=== PATIENT | female | born 1955 | race Caucasian/White ===

== ENCOUNTER 2023-03-17 13:37 | Day surgery (SDC) | payer MEDICARE, MEDICAID ==
[2023-03-16 08:37] LABS: BASOPHILS # (AUTO) 0.1 X10'3 (0-0.2); EOSINOPHILS # (AUTO) 0.3 X10'3 (0-0.9); HEMATOCRIT 41.6 % (35.0-45.0); HEMOGLOBIN 13.7 g/dl (12.0-16.0); LYMPHOCYTES # (AUTO) 2.6 X10'3 (1.1-4.8); MEAN CORPUSCULAR HGB CONC 32.9 g/dL (33.0-36.5); MEAN PLATELET VOLUME 9.8 FL (7.4-10.4); MONOCYTES # (AUTO) 0.5 X10'3 (0-0.9)
[2023-03-16 08:39] LABS: BASOPHILS % (AUTO) 1.4 % (0-1); EOSINOPHILS % (AUTO) 4.4 % (0-6); LYMPHOCYTES % (AUTO) 35.7 % (21-51); MEAN CORPUSCULAR HEMOGLOBIN 28.3 PG (27.0-31.0); MEAN CORPUSCULAR VOLUME 85.9 FL (78-98); MONOCYTES % (AUTO) 7.2 % (2-12); NEUTROPHILS # (AUTO) 3.8 X10'3 (1.8-7.7); NEUTROPHILS % (AUTO) 51.3 % (42-75); PLATELET COUNT 169 X10'3 (140-440); RED BLOOD COUNT 4.84 X10'6 (4.20-5.60); RED CELL DISTRIBUTION WIDTH 14.2 % (11.5-14.5); WHITE BLOOD COUNT 7.4 X10'3 (4.5-11.0)
[2023-03-16 08:44] LABS: APTT 28 SECONDS (22-32)
[2023-03-16 08:46] LABS: ALBUMIN 4.1 G/DL (3.4-5.0); ANION GAP 7 (8-16); BLOOD UREA NITROGEN 20 MG/DL (7-18); BUN/CREATININE RATIO 22.2 (10.0-20.0); CALCIUM 9.8 MG/DL (8.5-10.1); CHLORIDE 105 MMOL/L (99-107); CHOL/HDL RATIO 3.5 (0.00-4.99); CHOLESTEROL 171 MG/DL (0-200); GLUCOSE 97 MG/DL (70-104); HDL CHOLESTEROL 49 MG/DL (35-60); LDL CHOLESTEROL 92 MG/DL (50-100); POTASSIUM 4.3 MMOL/L (3.5-5.1); SODIUM 140 MMOL/L (135-145); TOTAL CARBON DIOXIDE 27.8 MMOL/L (24-32); TRIGLYCERIDES 78 MG/DL (20-135); eGFR 63 ML/MIN
[2023-03-17] VITALS (9 sets, daily range): BP systolic 133–174; BP diastolic 58–79
[~2023-03-17] VITALS: Ht 162.6 cm; Wt 68.2 kg
[~2023-03-17 13:37] MED LIST: AMLO5TAB PO; ASPI-974 PO; CLOP75TA15 PO; HYDR-4069 PO; HYDR25TA4 PO; SERT-153 PO; SIMV-42 PO
[2023-03-17] MEDS ORDERED: diphenhydrAMINE 25mg capsule PO PRN (13:55)
[2023-03-17] MEDS ORDERED: normal saline 1,000 ML IV SCH (13:55)
[2023-03-17] MEDS ORDERED: LORazepam 0.5 MG tablet PO PRN (13:55)
[2023-03-17] MEDS ORDERED: METO-395 PO (14:36)
[2023-03-17] MEDS ORDERED: HYDR50TA65 PO (14:36)
[2023-03-17] MEDS ORDERED: ISOS60TA71 PO (14:36)
[2023-03-17] MEDS ORDERED: LOSA50TA64 PO (14:36)
[2023-03-17] MEDS ORDERED: NITR0.4T48 (14:36)
[2023-03-17] MEDS ORDERED: ASPI-612 PO (14:38)
[2023-03-17] MEDS ORDERED: UBID100C45 PO (14:38)
[2023-03-17] MEDS ORDERED: POTA99CA (14:38)
[2023-03-17] MEDS ORDERED: nitroGLYCERIN-Tridil 50MG/D5W 250 ML IV ONE (14:42)
[2023-03-17] MEDS ORDERED: verapamil 2.5 mg/ml inj IV ONE (14:42)
[2023-03-17] MEDS ORDERED: LIDOcaine 1% (10mg/ml) 2ml vial ONE (14:42)
[2023-03-17] MEDS ORDERED: fentaNYL/PF 50MCG/1 ML 2ML syringe ONE (14:43)
[2023-03-17] MEDS ORDERED: iohexol 350MG/ML 100ml bottle IV ONE (14:43)
[2023-03-17] MEDS ORDERED: heparin 1,000unit/ml 10ml vial 10 ML ONE (14:43)
[2023-03-17] MEDS ORDERED: midazolam 1 mg/ML 2ml injection ONE (14:43)
[2023-03-17] MEDS ORDERED: nitroGLYCERIN 0.4mg SUBLingual tab SL PRN (16:00)
[2023-03-17] MEDS ORDERED: ondansetron/PF 4mg/2ml inj IV PRN (16:00)
[2023-03-17] MEDS ORDERED: proCHLORperazine 10 MG/2 ml inj IV PRN (16:00)
[2023-03-17] MEDS ORDERED: HYDROcodone/acetaminophen 10/325mg tab PO PRN (16:00)
[2023-03-17] MEDS ORDERED: HYDROcodone/acetaminophen 5mg/325mg tablet PO PRN (16:00)
[2023-03-17] MEDS ORDERED: OXAZEpam 15mg capsule PO PRN (16:00)
[2023-03-17] MEDS ORDERED: FLUT1AER INH (19:15)
== END 2023-03-17 19:55 | disposition home or self-care (01) ==
LOC: SSTAY O 13:37
PROVIDERS: ATTEND Student in an Organized Health Care Education/Training Program
DX: I25.110 Atherosclerotic heart disease of native coronary artery with unstable angina pectoris (principal); I25.82 Chronic total occlusion of coronary artery; I08.0 Rheumatic disorders of both mitral and aortic valves; I10 Essential (primary) hypertension; I25.2 Old myocardial infarction; F17.210 Nicotine dependence, cigarettes, uncomplicated; G47.33 Obstructive sleep apnea (adult) (pediatric); F41.9 Anxiety disorder, unspecified; F10.91 Alcohol use, unspecified, in remission; Z87.11 Personal history of peptic ulcer disease; Z98.41 Cataract extraction status, right eye; Z98.42 Cataract extraction status, left eye; Z90.710 Acquired absence of both cervix and uterus; Z88.0 Allergy status to penicillin; Z79.82 Long term (current) use of aspirin; Z79.899 Other long term (current) drug therapy; Z79.01 Long term (current) use of anticoagulants
CPT/HCPCS: 36415; 80048; 80061; 85025; 85610; 85730; 93005; 93306; 93454; 99152; C1894; J1644; J2250; J3010; J3490; J7030; Q9967; A6258; A6402

== ENCOUNTER 2023-03-24 13:39 | Day surgery (SDC) | payer MEDICARE, MEDICAID ==
[~2023-03-24] VITALS: Ht 162.6 cm; Wt 68.2 kg
[2023-03-24] VITALS (10 sets, daily range): BP systolic 106–196; BP diastolic 51–95
[~2023-03-24 13:39] MED LIST changes: +ASPI-612 PO; -ASPI-974 PO; +ATOR40TA PO; -CLOP75TA15 PO; -HYDR-4069 PO; -HYDR25TA4 PO; +HYDR50TA65 PO; +ISOS60TA71 PO; +LOSA50TA64 PO; +METO-395 PO; +NITR0.4T48; +NITR0.4T51 SL; +POTA99CA PO; -SERT-153 PO; -SIMV-42 PO; +UBID100C45 PO
[2023-03-24] MEDS ORDERED: LORazepam 0.5 MG tablet PO PRN (14:35)
[2023-03-24] MEDS ORDERED: diphenhydrAMINE 25mg capsule PO PRN (14:35)
[2023-03-24] MEDS ORDERED: normal saline 1,000 ML IV SCH (14:35)
[2023-04-01] MEDS ORDERED: HYDR-3972 PO (10:09)
[2023-04-02] MEDS ORDERED: GABA100C PO (20:16)
== END 2023-03-24 19:40 | disposition home or self-care (01) ==
LOC: SSTAY O 13:39
PROVIDERS: ATTEND Student in an Organized Health Care Education/Training Program
DX: I65.23 Occlusion and stenosis of bilateral carotid arteries (principal); I25.10 Atherosclerotic heart disease of native coronary artery without angina pectoris; I25.2 Old myocardial infarction; I10 Essential (primary) hypertension; E78.5 Hyperlipidemia, unspecified; F41.9 Anxiety disorder, unspecified; F17.290 Nicotine dependence, other tobacco product, uncomplicated; Z79.899 Other long term (current) drug therapy; Z88.0 Allergy status to penicillin; Z79.82 Long term (current) use of aspirin
CPT/HCPCS: 36222; 36225; 71250; 74176; 93005; 99152; 99153; A6258; J7030; Q0163

== ENCOUNTER 2024-01-06 09:28 | Outpatient (CLI) | payer MEDICARE, MEDICAID ==
[2024-01-05 10:57] LABS: ALBUMIN 3.8 G/DL (3.4-5.0); ANION GAP 9 (8-16); BLOOD UREA NITROGEN 20 MG/DL (7-18); BUN/CREATININE RATIO 18.3 (10.0-20.0); CALCIUM 9.2 MG/DL (8.5-10.1); CHLORIDE 102 MMOL/L (99-107); CREATININE 1.09 MG/DL (0.40-0.90); GLUCOSE 117 MG/DL (70-104); POTASSIUM 4.5 MMOL/L (3.5-5.1); SODIUM 139 MMOL/L (135-145); eGFR 50 ML/MIN
[~2024-01-06 09:28] MED LIST changes: -AMLO5TAB PO; +FURO-150 PO; +GABA100C PO; +GABA300C PO; +HYDR-3972 PO; -ISOS60TA71 PO; -NITR0.4T48; -NITR0.4T51 SL; +POTA-206 PO; -POTA99CA PO
[2024-01-06] MEDS ORDERED: iohexol 350 MG/ML 50ML vial IV ONE (09:41)
[2024-01-06] MEDS ORDERED: iohexol 350MG/ML 100ml bottle IV ONE (09:41)
== END 2024-01-06 23:59 | disposition home or self-care (01) ==
LOC: RAD 09:28
PROVIDERS: ATTEND Internal Medicine Interventional Cardiology
DX: I70.213 Atherosclerosis of native arteries of extremities with intermittent claudication, bilateral legs (principal); N28.1 Cyst of kidney, acquired; I65.29 Occlusion and stenosis of unspecified carotid artery; K57.30 Diverticulosis of large intestine without perforation or abscess without bleeding; I70.0 Atherosclerosis of aorta; I10 Essential (primary) hypertension; E78.5 Hyperlipidemia, unspecified
CPT/HCPCS: 36415; 75635; 80048; J3490; Q9967

== ENCOUNTER 2025-07-31 14:16 | Day surgery (SDC) | payer MEDICARE, OTHER ==
[2025-07-28 09:08] LABS: MEAN PLATELET VOLUME 8.7 FL (7.4-10.4); RED CELL DISTRIBUTION WIDTH 15.9 % (11.5-14.5)
[2025-07-28 09:25] LABS: CREATININE 1.21 MG/DL (0.40-0.90); TOTAL CARBON DIOXIDE 26.3 MMOL/L (24-32); eGFR 44 ML/MIN
[~2025-07-31] VITALS: Ht 162.6 cm; Wt 64.8 kg
[2025-07-31] VITALS (12 sets, daily range): BP systolic 112–184; BP diastolic 51–87; PULSE 61–88; RESP 16; TEMP 97.6; O2SAT 99–100
--- NOTE | 2025-07-31 14:43 | ELECTROCARDIOGRAPH REPORT ---
[facility] Test Date: 2025-07-31 Test Time: 14:41:03 Pat Name: MATTEO PAIZ Department: [facility] Patient ID: [id number] Room: Gender: F Touch Up Painter: CEDRIC : 1955 Requested By: JACK KELLOGG Order Number: [id number] Reading MD: Dr. JOSH Staples Measurements Intervals [place] Rate: 64 P: 49 NC: 175 QRS: 26 QRSD: 97 T: -2 QT: 402 QTc: 415 Interpretive Statements Sinus rhythm Probable anteroseptal infarct, recent Electronically Signed On 07-31-2025 16:06:[address] JOSH Staples Please click the below link to view image of tracing.
[2025-07-31] MEDS ORDERED: NITR0.4T48 (15:21)
[2025-07-31] MEDS ORDERED: EZET10TA80 PO (15:21)
[2025-07-31] MEDS ORDERED: CILO100T27 PO (15:21)
[2025-07-31] MEDS ORDERED: AMLO-382 PO (15:21)
[2025-07-31] MEDS ORDERED: DABI150C PO (15:21)
[2025-07-31] MEDS ORDERED: CHLO25TA10 PO (15:21)
[2025-07-31] MEDS ORDERED: POTA99CA PO (15:21)
[2025-07-31 15:27] LABS: INR 1.0 INR
[2025-07-31] MEDS ORDERED: heparin 1,000 units/ml 10ml inj ONE (16:00)
[2025-07-31] MEDS ORDERED: D5W IV ONE (16:00)
[2025-07-31] MEDS: normal saline 1000ml 1,000 ML IV SCH (16:00)
[2025-07-31] MEDS ORDERED: LIDOcaine 1% (10mg/ml) 2ml vial ONE (16:00)
[2025-07-31] MEDS ORDERED: verapamil 2.5 mg/ml inj IV ONE (16:00)
[2025-07-31] MEDS ORDERED: NITROGLYCERIN IV ONE (16:00)
[2025-07-31] MEDS ORDERED: midazolam 1 mg/ML 2ml injection ONE ×2 (16:00)
[2025-07-31] MEDS ORDERED: LIDOcaine 1% 30ml preserv. free vial ONE (16:00)
[2025-07-31] MEDS ORDERED: heparin 1,000 UNITS/NS 500ml (2 units/mL) BAG ONE (16:00)
[2025-07-31] MEDS ORDERED: fentaNYL/PF 50MCG/1 ML 2ML syringe ONE (16:00)
[2025-07-31] MEDS ORDERED: iohexol 350 MG/ML 50ML vial IV ONE (16:00)
--- NOTE | 2025-07-31 17:29 | CARDIAC CATH REPORT ---
Cardiac Cath Report Providers to CC CC: MELONIE KELLOGG MD Procedure Comments: 1. Aortic arch angiography. 2. Selective Right Brachiocephalic Artery Angiography 3. Selective Right Subclavian Artery Angiography 4. 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 Techniques: After informed consent was obtained, the patient was brought to the lab where she was prepped and draped in the usual sterile fashion. After adequate anesthesia was obtained using 1% lidocaine to the right wrist, 6-Polish sheath was inserted into the right radial artery using a modified Seldinger technique. Thereafter, using a JR4 catheter, the catheter was advanced into the Brachiocephalic Artery and angiography performed. Next, the JR4 was exchanged for a pigtail catheter and selective aortic arch angiography was performed. The catheter and wires removed and hemostasis obtained using a VascBand. Findings Findings: 1. The patient has a type 1 Aortic arch with mild calcification of the arch and great vessels. 2. The Right Brachiocephalic artery has mild stenosis, up to 20%. 3. The Left Common Carotid artery has mild-moderate stenosis, 30-40%. 4. The Right Subclavian artery has mild-moderate stenosis, 20-30%. 5. The Axillary-Fem bypass appears to be widely patent Results Results: 1. No significant stenosis of the right brachiocephalic/Subclavian artery 2. Patent axillary-fem bypass graft 3. RRA Access, closed with VascBand RECOMMENDATIONS: 1. Cont uptitration of max-tolerated GDMT JACK KELLOGG MD Jul 31, 2025 17:29
[2025-07-31] MEDS ORDERED: morphine 4 MG/ML inj SYRINge IV PRN (18:25)
[2025-07-31] MEDS: morphine 4 MG/ML inj SYRINge ONE (18:29)
== END 2025-07-31 20:15 | disposition home or self-care (01) ==
LOC: SSTAY O 14:16
PROVIDERS: ATTEND Student in an Organized Health Care Education/Training Program
DX: I70.8 Atherosclerosis of other arteries (principal); I65.22 Occlusion and stenosis of left carotid artery; I10 Essential (primary) hypertension; I25.10 Atherosclerotic heart disease of native coronary artery without angina pectoris; E78.00 Pure hypercholesterolemia, unspecified; I48.91 Unspecified atrial fibrillation; I73.9 Peripheral vascular disease, unspecified; I25.2 Old myocardial infarction; Z79.899 Other long term (current) drug therapy; Z88.0 Allergy status to penicillin
CPT/HCPCS: 36215; 36415; 75605; 80048; 85025; 85610; 93005; A6258; A6402; C1894; J1644; J2003; J2250; J2270; J3010; J3490; J7030; Q0163; Q9967; 36221; 76937; 99152; 99153